=== PATIENT | male | born 1960 | race Caucasian/White ===

== ENCOUNTER 2020-04-02 14:31 | Outpatient (CLI) | payer BC, SELFPAY ==
--- NOTE | 2020-04-02 14:52 | ECG_ITS ---
Measurements Intervals [place] Rate: 81 P: -3 CT: 134 QRS: -18 QRSD: 81 T: -2 QT: 345 QTc: 402 Interpretive Statements SINUS RHYTHM BORDERLINE T WAVE ABNORMALITY- INFERIOR LEADS BORDERLINE ECG Electronically Signed On 04-02-2020 15:46:22 CDT by Berhane Yu D.O.
== END 2020-04-02 14:32 | disposition home or self-care (01) ==
PROVIDERS: PCP Internal Medicine; Visit Provider Internal Medicine
DX: M75.100 Unspecified rotator cuff tear or rupture of unspecified shoulder, not specified as traumatic (principal); R94.31 Abnormal electrocardiogram [ECG] [EKG]
CPT/HCPCS: 93005

== ENCOUNTER 2022-01-18 13:14 | Emergency (ER) | payer BC, SELFPAY ==
--- NOTE | ~2022-01-18 | XR_ITS ---
EXAMINATION: XR chest 2V EXAM DATE: 01/18/2022 14:10 INDICATION: Chest Pain Rt Side Hx Controlled HBP. TECHNIQUE: Frontal and lateral projections of the chest obtained and reviewed. Comparison is made to prior examination from 09/10/2014. FINDINGS: The lungs are clear. There are no pleural effusions. The cardiomediastinal silhouette is within normal limits. There is no pneumothorax suspected. The bones and soft tissues are unremarkab le. IMPRESSION: No acute cardiopulmonary findings. Reviewed, dictated and finalized at location A.
[2022-01-18 13:16] VITALS: BP 132/85; PULSE 103; RESP 18; TEMP 36.4; O2SAT 98
--- NOTE | 2022-01-18 13:20 | ECG_ITS ---
Measurements Intervals [place] Rate: 94 P: 34 SD: 145 QRS: -9 QRSD: 76 T: 1 QT: 325 QTc: 408 Interpretive Statements SINUS RHYTHM MINOR T-WAVE ABNORMALITY COMPARED TO ECG 04/02/2020 14:57:56 NO SIGNIFICANT CHANGES Electronically Signed On 01-18-2022 15:03:12 CDT by Viktor Covington M.D.
[2022-01-18] MEDS: KETOROLAC 30 MG/ML VIAL (*BKC) IV PUSH (13:47)
[2022-01-18] MEDS: ASPIRIN 81 MG CHEWABLE TABLET 324 MG PO (13:48)
--- NOTE | 2022-01-18 13:50 | ED.CHESTPAIN ---
HPI - Chest Pain General Chief Complaint: Chest Pain Stated Complaint: Chest Pain Time Seen by Provider: 01/18/22 13:32 History of Present Illness HPI narrative: Patient is a 61-year-old male who presents ER with constant right-sided chest pain. Began this morning around 6:00. It is worse when he coughs or moves. No dyspnea or hemoptysis. No lower extremity swelling. Patient reports he has had a cough for the last week with runny nose. No fevers or chills or sweats. No history of heart disease. No exertional dyspnea or chest. No radiation of the chest pain. Patient has not tried any anti-inflammatories for his discomfort. Related Data Home Medications Medication Instructions Recorded Confirmed ibuprofen 800 mg tablet 800 mg PO Q6H 07/21/21 07/21/21 Allergies Allergy/AdvReac Type Severity Reaction Status Date / Time No Known Allergies Allergy Verified 01/18/22 13:21 Review of Systems Review of Systems: All systems reviewed & are unremarkable except as noted in HPI and below Constitutional: Constitutional: Denies chills, Denies fever(s) and Denies weakness ENT: Denies nasal congestion and Denies sore throat Cardiovascular: Cardiovascular: Reports chest pain, Denies rapid heart rate and Denies radiating jaw, neck or arm pain Respiratory: Respiratory: Reports cough, Denies dyspnea and Denies wheezing Gastrointestinal: Gastrointestinal: Denies abdominal pain, Denies nausea and Denies vomiting Neurologic: Denies headache(s), Denies focal weakness and Denies numbness PMFSH Past Medical History Medical History (Updated 01/18/22 @ 16:43 by Bill Hall MD) Erectile dysfunction Essential hypertension Hepatitis C antibody positive in blood Impaired fasting glucose Low testosterone Mixed hyperlipidemia Surgical History Surgical History (Updated 01/18/22 @ 13:57 by Bill Hall MD) No pertinent past surgical history Family History Family History Grandparent Diabetes mellitus Sibling Family history of pancreatic cancer Family history of malignant neoplasm of breast in first degree relative Father Family history of chronic obstructive pulmonary disease Social History Social History (Updated 07/21/21 @ 12:40 by Deana White CNA) Smoking status: Never smoker Second hand tobacco smoke exposure: No Alcohol intake: current Drinks per week: 3 Alcohol use details: social Substance use: never Substance use type: does not use Exam Narrative: GENERAL: Well-appearing, well-nourished, and in no acute distress. HEAD: Normocephalic, atraumatic. EYES: PERRL and EOMI. ENT: Mucous membranes moist. CHEST: Clear to auscultation. No respiratory distress. HEART: Regular rate and rhythm. Normal peripheral pulses. ABDOMEN: Soft, nontender, nondistended. EXTREMITIES: Normal range of motion. No edema. SKIN: Warm, dry, no rash. NEURO: Alert and oriented x3. PSYCH: Normal mood and affect. Course Course Emergency Course: Pain improved with Toradol. D-dimer negative. Troponin negative x2. Discharge home. Vital Signs Vital signs: Vital Signs Temperature 97.6 F 01/18/22 13:16 Pulse Rate 103 H 01/18/22 13:16 Respiratory Rate 18 01/18/22 13:16 Blood Pressure 132/85 01/18/22 13:16 Pulse Oximetry 98 01/18/22 13:16 Temperature 97.6 F 01/18/22 13:16 Pulse Rate 90 01/18/22 14:59 Respiratory Rate 20 01/18/22 14:59 Blood Pressure 128/85 01/18/22 14:59 Pulse Oximetry 98 01/18/22 14:59 MDM - Chest Pain Lab Data Result diagrams: 01/18/22 13:48 01/18/22 13:48 Labs: Lab Results 01/18/22 01/18/22 01/18/22 Range/Units 13:48 13:48 13:48 WBC 8.5 (4.5-10.0) K/mm3 RBC 5.16 (4.6-6.20) M/mm3 Hgb 15.7 (14.0-18.0) g/dL Hct 46.1 (42.0-52.0) % MCV 89.3 (80-100) fl MCH 30.4 (26-34) pg MCHC 34.1 (32-36) g/dl RDW 13.2 (11.5-1
[2022-01-18 14:10] LABS: Alanine Aminotransferase 32 U/L (4-50); Albumin Level 4.5 g/dL (3.5-5.1); Alkaline Phosphatase 75 U/L (38-126); Anion Gap 10 mmol/L (8-16); Aspartate Amino Transferase 28 U/L (17-59); Bilirubin,Total 0.8 mg/dL (0.2-1.3); Blood Urea Nitrogen 14 mg/dL (9-20); Calcium 9.2 mg/dL (8.4-10.2); Carbon Dioxide 24 mmol/L (22-30); Chloride 104 mmol/L (98-107); Estimated CRCL calculation 73 ml/min; Estimated Glomerular Filt Rate > 60; Glucose 138 mg/dL (65-110); Lipase 141 U/L (23-300); Potassium 3.7 mmol/L (3.4-5.0); Sodium 138 mmol/L (137-145)
[2022-01-18 14:21] LABS: Troponin I < 0.012 ng/mL (0.000-0.034)
[2022-01-18 14:25] LABS: Partial Thromboplastin Time 26.8 SECONDS (22.3-36.8); Prothrombin Time 12.7 Seconds (11.1-14.7)
[2022-01-18 14:26] LABS: Basophils Percent Auto 0.4 % (0.2-1.2); Eosinophils Absolute Auto 0.1 K/mm3 (0-0.3); Eosinophils Percent Auto 1.2 % (0-4.4); Hematocrit 46.1 % (42.0-52.0); Hemoglobin 15.7 g/dL (14.0-18.0); Immature Granulocyte Absolute 0.02 K/mm3 (0.00-0.031); Immature Granulocyte Percent A 0.2 % (0-0.5); Lymphocytes Absolute Auto 1.77 K/mm3 (0.9-3.2); Lymphocytes Percent Auto 20.9 % (18.3-44.2); Mean Corpuscular HGB Conc 34.1 g/dl (32-36); Mean Corpuscular Hemoglobin 30.4 pg (26-34); Mean Corpuscular Volume 89.3 fl (80-100); Mean Platelet Volume 10.1 fl (7.4-10.4); Monocytes Absolute Auto 0.7 K/mm3 (0.1-0.6); Monocytes Percent Auto 8.3 % (2.6-8.5); Neutrophils Absolute Auto 5.8 K/mm3 (1.3-6.7); Platelet Count Result 233 k/mm3 (150-375); Red Blood Count 5.16 M/mm3 (4.6-6.20); Red Cell Distribution Width 13.2 % (11.5-14.5); White Blood Count 8.5 K/mm3 (4.5-10.0)
[2022-01-18 14:57] VITALS: PULSE 87
[2022-01-18 14:59] VITALS: BP 128/85; PULSE 90; RESP 20; O2SAT 97; O2SAT 98
[2022-01-18 16:40] LABS: Troponin I < 0.012 ng/mL (0.000-0.034)
[2022-01-18 16:57] VITALS: BP 118/81; PULSE 81; RESP 20; O2SAT 100
== END 2022-01-18 17:00 | disposition home or self-care (01) ==
PROVIDERS: Emergency Provider Emergency Medicine; PCP Internal Medicine
DX: R07.89 Other chest pain (principal); I10 Essential (primary) hypertension; E78.2 Mixed hyperlipidemia; R94.31 Abnormal electrocardiogram [ECG] [EKG]
CPT/HCPCS: 36415; 71046; 80053; 83690; 84484; 85025; 85380; 85610; 85730; 93005; 96374; 99284; A9270; J1885